=== PATIENT | female | born 1960 | race Two or more races ===

== ENCOUNTER 2018-11-01 09:40 | Emergency (ER) | payer MEDICAID, SELFPAY ==
[~2018-11-01] VITALS: Ht 152.4 cm; Wt 67.2 kg
[2018-11-01] MEDS ORDERED: KETOROLAC 30 MG/1 ML ONE (10:24)
[2018-11-01] MEDS ORDERED: KETOROLAC 30 MG/1 ML IM ONE (10:30)
--- NOTE | 2018-11-01 10:31 | NUR ---
BIB [facility] FOR C/O FEVERS/CHILLS, NAUSEA NO EMESIS, BODY ACHES, AND COUGH. SX STARTED TUESDAY. PT DENIES HX AND PRESCRIPTION MEDS. PT RESTING ON [employer]. MONITORS IN PLACE. Addendum: 11/01/18 at 1039 by SHANNON BIB SELF NOT [facility]
--- NOTE | 2018-11-01 10:38 | NUR ---
PT VERBALIZES SHE GETS NAUSEOUS AND THEN FEELS LIKE SHE IS GOING TO HAVE SYNCOPAL EPISODE. JESICA TAYLOR NOTIFIED.
[2018-11-01 10:59] LABS: BASOPHILS # (AUTO) 0.02 x10^3/uL (0-0.1); BASOPHILS % (AUTO) 0 % (0-1); EOSINOPHILS # (AUTO) 0.01 x10^3/uL (0-0.4); EOSINOPHILS % (AUTO) 0 % (1-7); LYMPHOCYTES # (AUTO) 2.49 x10^3/uL (1-3.4); LYMPHOCYTES % (AUTO) 49 % (22-44); MD NO; MEAN CORPUSCULAR HEMOGLOBIN 31.4 pg (27.0-34.8); MEAN CORPUSCULAR HGB CONC 33.3 g/dL (32.4-35.8); MEAN CORPUSCULAR VOLUME 94.3 fL (80-100); MEAN PLATELET VOLUME 8.7 fL (7.4-10.4); MONOCYTES % (AUTO) 14 % (2-9); NEUTROPHILS # (AUTO) 1.85 x10^3/uL (1.8-6.8); NEUTROPHILS % (AUTO) 37 % (42-75); PLATELET COUNT 273 x10^3/uL (130-400); RED BLOOD COUNT 4.41 x10^6/uL (3.82-5.3); RED CELL DISTRIBUTION WIDTH 14.1 % (9.6-15.2)
[2018-11-01 11:03] LABS: ANION GAP 6 mmol/L (5-15); CALCIUM 8.2 mg/dL (8.5-10.1); CHLORIDE 104 mmol/L (98-107); CREATININE 0.76 mg/dL (0.55-1.02)
[2018-11-01 11:40] LABS: RAPID INFLUENZA A Negative (Negative)
[2018-11-01 11:41] LABS: RAPID INFLUENZA B Negative (Negative)
[2018-11-01 12:06] VITALS: BP 107/60
--- NOTE | 2018-11-01 12:07 | NUR ---
Patient/Caregiver given discharge instructions and they have confirmed that they understand the instructions. Patient ambulatory with steady gait. PT LEFT WITH ALL PERSONAL BELONGINGS.
== END 2018-11-01 12:11 | disposition home or self-care (01) ==
LOC: ED 11:48
DX: B34.9 Viral infection, unspecified (principal); M79.10 Myalgia, unspecified site; Z90.710 Acquired absence of both cervix and uterus; Z90.49 Acquired absence of other specified parts of digestive tract
CPT/HCPCS: 36415; 71046; 80048; 85025; 87400; 93005; 96372; 99284; J1885